=== PATIENT | male | born 1955 | race African-American/Black ===

== ENCOUNTER 2019-05-21 10:55 | Inpatient (IN) | payer MEDICAID ==
[~2019-05-21] VITALS: Ht 180.3 cm; Wt 74.8 kg
[2019-05-21] MEDS ORDERED: HYDR12.529 PO (11:02)
[2019-05-21] MEDS ORDERED: ALBUTEROL (0.083%) 2.5MG/3ML NEB HHN STA (11:32)
[2019-05-21] MEDS ORDERED: IPRATROPIUM BROMIDE (0.02%) 0.5MG/2.5ML NEB HHN STA (11:32)
[2019-05-21] MEDS ORDERED: MAGNESIUM 2 G PREMIX 50 ML IV STA (11:32)
[2019-05-21] MEDS ORDERED: METHYLPREDNISOLONE SOD SUCC 125 MG/2 ML VIAL IV STA (11:32)
[2019-05-21] MEDS ORDERED: MORPHINE SULFATE 10 MG/ML CPJ IV ONE (11:45)
[2019-05-21] MEDS ORDERED: ONDANSETRON HCL 4MG/2ML INJ IV ONE (11:45)
[2019-05-21 12:37] LABS: CHLORIDE 108 mEq/L (98-107)
[2019-05-21 12:40] LABS: BASOPHILS % 0.6 % (0.0-2.0); EOSINOPHILS % 2.3 % (0.0-5.0); HEMATOCRIT. 46.6 % (42.0-52.0); HEMOGLOBIN. 15.5 g/dL (14.0-18.0); LYMPHOCYTES % 45.3 % (20.0-50.0); MEAN CORPUSCULAR HEMOGLOBIN 27.6 pg (28.0-32.0); MEAN PLATELET VOLUME 8.4 fl (7.4-10.4); MONOCYTES % 5.6 % (2.0-8.0); NEUTROPHILS % 46.2 % (40.0-76.0); PLATELET 215 x1000/uL (130-400); PROTHROMBIN TIME 10.4 sec (9.6-11.0); RED BLOOD CELL COUNT 5.61 mill/uL (4.7-6.1); RED CELL DISTRIBUTION WIDTH 22.1 % (11.6-14.6)
[2019-05-21 13:00] LABS: PLATELET ESTIMATE NORMAL
[2019-05-21 13:10] LABS: CLARITY URINE CLEAR (CLEAR); COLOR URINE YELLOW (YELLOW); KETONES URINE NEGATIVE (NEGATIVE); LEUKOCYTE ESTERASE URINE NEGATIVE (NEGATIVE); NITRITE URINE NEGATIVE (NEGATIVE); OCCULT BLOOD URINE NEGATIVE (NEGATIVE); PH URINE 5.5 (4.5-8.0); PROTEIN URINE NEGATIVE (NEGATIVE); SPECIFIC GRAVITY URINE 1.013 (1.005-1.030); UROBILINOGEN URINE 0.2 E.U./dL (0.2-1.0)
[2019-05-21] MEDS ORDERED: LEVOFLOXACIN 500MG PREMIX 100 ML IV ONE (14:15)
[2019-05-21] MEDS ORDERED: ONDANSETRON HCL 4MG/2ML INJ IV PRN (14:30)
[2019-05-21] MEDS ORDERED: HYDROCODONE/ACETAMINOPHEN 5/325MG TABLET PO PRN (14:30)
[2019-05-21] MEDS ORDERED: OXYCODONE HCL/ACETAMINOPHEN 5/325MG TABLET PO ONE (14:30)
[2019-05-21] MEDS ORDERED: IPRATROPIUM/ALBUTEROL 0.5-3(2.5)MG/3ML NEB HHN PRN (14:30)
[2019-05-21] MEDS ORDERED: ACETAMINOPHEN 325MG TABLET PO PRN (14:30)
[2019-05-21] MEDS ORDERED: GUAIFENESIN-DM 200MG-20MG/10ML UDC PO PRN (14:30)
[2019-05-21] MEDS ORDERED: KETOROLAC 30MG/ML VIAL IV PRN (14:30)
[2019-05-21] MEDS ORDERED: CLONIDINE 0.1MG TABLET PO PRN (14:45)
[2019-05-21 16:00] VITALS: BP_SYST 122; BP_SYST 99; BP_DIAS 61; BP_DIAS 73
[2019-05-21] MEDS: METHYLPREDNISOLONE SOD SUCC 40 MG/ML VIAL IV SCH (16:20)
[2019-05-21] MEDS: MONTELUKAST SODIUM 10MG TABLET PO SCH (16:20)
[2019-05-21 16:59] VITALS: BP 122/61
[2019-05-21 20:00] VITALS: BP 122/83
[2019-05-21] MEDS: GUAIFENESIN 600MG ER TABLET PO SCH (20:22)
[2019-05-21] MEDS: HYDROCODONE/ACETAMINOPHEN 10/325MG TABLET PO PRN (22:29)
[2019-05-21 22:57] LABS: *AMPHETAMINES SCREEN URINE NEGATIVE (NEGATIVE); *BARBITURATES SCREEN URINE NEGATIVE (NEGATIVE); *BENZODIAZEPINES SCREEN URINE PRESUMTIVE POSITIVE (NEGATIVE); *COCAINE SCREEN URINE NEGATIVE (NEGATIVE)
[2019-05-21 22:58] LABS: CANNABINOID URINE SCREEN NEGATIVE (NEGATIVE); METHADONE URINE SCREEN NEGATIVE (NEGATIVE); OPIATES URINE SCREEN PRESUMTIVE POSITIVE (NEGATIVE); PHENCYCLIDINE URINE SCREEN NEGATIVE (NEGATIVE)
[2019-05-22] VITALS: BP 100/63
[2019-05-22] MEDS: METHYLPREDNISOLONE SOD SUCC 40 MG/ML VIAL IV SCH ×3 (01:02→16:46)
[2019-05-22] MEDS: ZOLPIDEM TARTRATE 5MG TABLET PO PRN ×2 (01:08→21:19)
[2019-05-22 04:00] VITALS: BP 109/67
[2019-05-22] MEDS: HYDROCODONE/ACETAMINOPHEN 10/325MG TABLET PO PRN ×4 (06:10→19:54)
[2019-05-22 08:00] VITALS: BP 108/69
[2019-05-22] MEDS: GUAIFENESIN 600MG ER TABLET PO SCH ×2 (09:24→20:02)
[2019-05-22] MEDS: NICOTINE 14MG PATCH TD SCH (09:33)
[2019-05-22 12:00] VITALS: BP 117/71
[2019-05-22] MEDS: LEVOFLOXACIN 750MG PREMIX 150 ML IV SCH (14:40)
[2019-05-22 16:00] VITALS: BP 118/78
[2019-05-22] MEDS: MONTELUKAST SODIUM 10MG TABLET PO SCH (16:46)
[2019-05-22 20:00] VITALS: BP_SYST 133; BP_DIAS 70; BP_DIAS 80
[2019-05-23] VITALS: BP 125/86
[2019-05-23] MEDS: IPRATROPIUM/ALBUTEROL 0.5-3(2.5)MG/3ML NEB HHN SCH ×4 (00:02→12:30)
[2019-05-23] MEDS: METHYLPREDNISOLONE SOD SUCC 40 MG/ML VIAL IV SCH ×2 (00:10→08:49)
[2019-05-23] MEDS: HYDROCODONE/ACETAMINOPHEN 10/325MG TABLET PO PRN ×4 (00:13→14:27)
[2019-05-23 04:00] VITALS: BP 142/79
[2019-05-23 08:00] VITALS: BP 123/84
[2019-05-23] MEDS: NICOTINE 14MG PATCH TD SCH (08:49)
[2019-05-23] MEDS: GUAIFENESIN 600MG ER TABLET PO SCH (08:49)
[2019-05-23] MEDS ORDERED: IPRA3AMP9 NEB (10:04)
[2019-05-23] MEDS ORDERED: FLUT1DIS3 INH (10:04)
[2019-05-23] MEDS ORDERED: LEVO750T21 MT (10:04)
[2019-05-23] MEDS ORDERED: ALBU18HF2 IH (10:04)
[2019-05-23] MEDS ORDERED: MONT10TA21 MT (10:04)
[2019-05-23] MEDS ORDERED: TUSSL MT (10:04)
[2019-05-23] MEDS ORDERED: GUAI600T26 MT (10:04)
[2019-05-23] MEDS ORDERED: NICO-645 TP (10:04)
[2019-05-23] MEDS ORDERED: P20 MT (10:04)
[2019-05-23 12:00] VITALS: BP 121/82
[2019-05-23 12:48] VITALS: BP 121/82
[2019-05-23] MEDS: LEVOFLOXACIN 750MG PREMIX 150 ML IV SCH (13:59)
[2019-05-23 16:00] VITALS: BP 134/89
== END 2019-05-23 15:45 | disposition home or self-care (01) | DRG 140 ==
LOC: ER 10:55 → 6EST 14:05 → ENRESERV 14:44
PROVIDERS: ADMIT Internal Medicine; ATTEND Internal Medicine
DX: J44.0 Chronic obstructive pulmonary disease with (acute) lower respiratory infection (principal); J18.9 Pneumonia, unspecified organism; E87.8 Other disorders of electrolyte and fluid balance, not elsewhere classified; J44.1 Chronic obstructive pulmonary disease with (acute) exacerbation; I10 Essential (primary) hypertension; F17.210 Nicotine dependence, cigarettes, uncomplicated; G89.29 Other chronic pain; M19.90 Unspecified osteoarthritis, unspecified site; Z71.6 Tobacco abuse counseling
CPT/HCPCS: 36415; 71045; 80305; 81003; 82962; 83605; 83880; 84145; 84484; 93005; 93970; 94640; 96365; 96375; 99291; J1885; J1956; J2270; J2405; J2920; J2930; J3475; J7611; J7620

== ENCOUNTER 2019-07-06 20:13 | Inpatient (IN) | payer MEDICAID ==
[~2019-07-06] VITALS: Ht 180.3 cm; Wt 72.6 kg
[~2019-07-06 20:13] MED LIST: ALBU18HF2 IH; FLUT1DIS3 INH; GUAI600T26 MT; HYDR12.529 PO; IPRA3AMP9 NEB; LEVO750T21 MT; MONT10TA21 MT; NICO-645 TP; P20 MT; TUSSL MT
[2019-07-06] MEDS ORDERED: IPRATROPIUM BROMIDE (0.02%) 0.5MG/2.5ML NEB HHN STA (20:45)
[2019-07-06] MEDS ORDERED: METHYLPREDNISOLONE SOD SUCC 125 MG/2 ML VIAL IV STA (20:45)
[2019-07-06] MEDS ORDERED: ALBUTEROL (0.083%) 2.5MG/3ML NEB HHN STA (20:45)
[2019-07-06] MEDS ORDERED: NICOTINE 14MG PATCH TD SCH (21:15)
[2019-07-06] MEDS ORDERED: AZITHROMYCIN 500 MG in DEXT 5% WATER 250 ML IV SCH (21:15)
[2019-07-06 21:19] LABS: BASOPHILS % 0.5 % (0.0-2.0); EOSINOPHILS % 1.5 % (0.0-5.0); HEMATOCRIT. 40.1 % (42.0-52.0); HEMOGLOBIN. 13.3 g/dL (14.0-18.0); LYMPHOCYTES % 23.9 % (20.0-50.0); MEAN CORPUSCULAR HEMOGLOBIN 28.5 pg (28.0-32.0); MEAN PLATELET VOLUME 8.1 fl (7.4-10.4); MONOCYTES % 7.8 % (2.0-8.0); NEUTROPHILS % 66.3 % (40.0-76.0); PLATELET 193 x1000/uL (130-400); RED BLOOD CELL COUNT 4.65 mill/uL (4.7-6.1); RED CELL DISTRIBUTION WIDTH 23.2 % (11.6-14.6)
[2019-07-06 21:24] LABS: CHLORIDE 110 mEq/L (98-107)
[2019-07-06 22:02] LABS: PLATELET ESTIMATE NORMAL
[2019-07-07] VITALS (8 sets, daily range): BP systolic 112–161; BP diastolic 51–100
[2019-07-07] MEDS ORDERED: ALBUTEROL (0.083%) 2.5MG/3ML NEB HHN PRN (01:00)
[2019-07-07] MEDS: MORPHINE SULFATE 2 MG/ML CPJ (NOT FOR IM USE) IV PRN ×3 (02:39→10:45)
[2019-07-07] MEDS ORDERED: LEVOFLOXACIN 500MG PREMIX 100 ML IV SCH (04:00)
[2019-07-07] MEDS: ALBUTEROL (0.083%) 2.5MG/3ML NEB HHN SCH ×5 (04:37→20:47)
[2019-07-07] MEDS ORDERED: GUAIFENESIN-DM 200MG-20MG/10ML UDC PO PRN (05:15)
[2019-07-07] MEDS: METHYLPREDNISOLONE SOD SUCC 40 MG/ML VIAL IV SCH ×3 (05:24→21:26)
[2019-07-07] MEDS: FLUTICASONE PROPIONATE 50MCG/SPRAY BOTTLE BOTHNSTRLS SCH ×2 (05:24→16:41)
[2019-07-07] MEDS: HYDROCODONE/ACETAMINOPHEN 10/325MG TABLET PO PRN ×2 (14:26→18:30)
[2019-07-07] MEDS: ENOXAPARIN 40MG/0.4ML SYR SUBCUT SCH (14:30)
[2019-07-08] VITALS: BP 111/53
[2019-07-08] MEDS: ALBUTEROL (0.083%) 2.5MG/3ML NEB HHN SCH ×4 (00:31→13:18)
[2019-07-08] MEDS: HYDROCODONE/ACETAMINOPHEN 10/325MG TABLET PO PRN ×3 (02:29→10:35)
[2019-07-08 04:00] VITALS: BP 123/71
[2019-07-08] MEDS: METHYLPREDNISOLONE SOD SUCC 40 MG/ML VIAL IV SCH ×2 (05:22→13:23)
[2019-07-08 08:00] VITALS: BP 129/72
[2019-07-08] MEDS: FLUTICASONE PROPIONATE 50MCG/SPRAY BOTTLE BOTHNSTRLS SCH (08:10)
[2019-07-08] MEDS: ENOXAPARIN 40MG/0.4ML SYR SUBCUT SCH (08:11)
[2019-07-08] MEDS ORDERED: ASPIRIN 81MG TABLET PO SCH (09:00)
[2019-07-08 12:00] VITALS: BP 120/66
[2019-07-08] MEDS ORDERED: P20 MT (14:06)
[2019-07-08 14:35] VITALS: BP 120/66
== END 2019-07-08 17:00 | disposition home or self-care (01) | DRG 140 ==
LOC: ER 20:55 → 8WST 21:12 → EDBEDREQ 21:15 → EDBEDREQTM 21:15 → ENRESERV 23:51
PROVIDERS: ADMIT Internal Medicine; ATTEND Internal Medicine
DX: J44.1 Chronic obstructive pulmonary disease with (acute) exacerbation (principal); J96.00 Acute respiratory failure, unspecified whether with hypoxia or hypercapnia; M94.0 Chondrocostal junction syndrome [Tietze]; E87.8 Other disorders of electrolyte and fluid balance, not elsewhere classified; D64.9 Anemia, unspecified; I10 Essential (primary) hypertension; F17.210 Nicotine dependence, cigarettes, uncomplicated; F41.9 Anxiety disorder, unspecified; G89.29 Other chronic pain; M54.9 Dorsalgia, unspecified; Z71.6 Tobacco abuse counseling
CPT/HCPCS: 36415; 71045; 80048; 83880; 84484; 85379; 93005; 93306; 94644; 99285; J0456; J1650; J1956; J2270; J2920; J2930; J7060; J7611

== ENCOUNTER 2019-07-31 08:35 | Inpatient (IN) | payer MEDICAID ==
[~2019-07-31] VITALS: Ht 180.3 cm; Wt 68.5 kg
[~2019-07-31 08:35] MED LIST changes: -LEVO750T21 MT
[2019-07-31] MEDS ORDERED: METHYLPREDNISOLONE SOD SUCC 125 MG/2 ML VIAL IV STA (08:38)
[2019-07-31] MEDS ORDERED: ALBUTEROL (0.083%) 2.5MG/3ML NEB HHN STA (08:38)
[2019-07-31] MEDS ORDERED: MAGNESIUM 2 G PREMIX 50 ML IV STA (08:38)
[2019-07-31] MEDS ORDERED: LEVOFLOXACIN 750MG PREMIX 150 ML IV STA (08:38)
[2019-07-31] MEDS ORDERED: IPRATROPIUM BROMIDE (0.02%) 0.5MG/2.5ML NEB HHN STA (08:38)
[2019-07-31 09:21] LABS: BASOPHILS % 0.2 % (0.0-2.0); EOSINOPHILS % 0.1 % (0.0-5.0); HEMATOCRIT. 44.4 % (42.0-52.0); HEMOGLOBIN. 14.8 g/dL (14.0-18.0); LYMPHOCYTES % 7.2 % (20.0-50.0); MEAN CORPUSCULAR HEMOGLOBIN 29.3 pg (28.0-32.0); MONOCYTES % 5.6 % (2.0-8.0); NEUTROPHILS % 86.9 % (40.0-76.0); RED BLOOD CELL COUNT 5.04 mill/uL (4.7-6.1); RED CELL DISTRIBUTION WIDTH 22.2 % (11.6-14.6)
[2019-07-31 09:22] LABS: BG BASE EXCESS -0.3 mmol/L (-2.0-2.0); BG BILEVEL POS AIRWAY PRESSURE 15/5; BG CARBOXYHEMOGLOBIN 3.4 % (0.5-1.5); BG DEOXYHEMOGLOBIN 0.2 % (0.0-5.0); BG FRACTION INSPIRED OXYGEN 40; BG HCO3 ACT 25.3 mmol/L (22.0-26.0); BG METHEMOGLOBIN 0.3 % (0.0-1.5); BG OXYGEN SATURATION 99.8 % (92.0-98.5); BG OXYHEMOGLOBIN 96.1 % (94.0-97.0); BG PCO2 44.9 mmHg (35.0-45.0); BG PH 7.369 (7.350-7.450); BG SAMPLE SITE RIGHT BRACHIAL; BG TOTAL HEMOGLOBIN 14.8 g/dL (12.0-18.0); BG VENT MODE MASK - BIPAP
[2019-07-31 09:27] LABS: CHLORIDE 103 mEq/L (98-107)
[2019-07-31 09:40] LABS: PLATELET 118 x1000/uL (130-400)
[2019-07-31 09:41] LABS: PLATELET ESTIMATE SLIGHTLY DECREASED
[2019-07-31 14:08] VITALS: BP 138/88
[2019-07-31] MEDS ORDERED: BENZONATATE 100MG CAPSULE PO PRN (14:15)
[2019-07-31] MEDS ORDERED: IPRATROPIUM/ALBUTEROL 0.5-3(2.5)MG/3ML NEB HHN PRN (14:15)
[2019-07-31] MEDS ORDERED: KETOROLAC 30MG/ML VIAL IV PRN (14:45)
[2019-07-31 14:59] LABS: BG BASE EXCESS 1.3 mmol/L (-2.0-2.0); BG CARBOXYHEMOGLOBIN 2.1 % (0.5-1.5); BG DEOXYHEMOGLOBIN 2.7 % (0.0-5.0); BG FRACTION INSPIRED OXYGEN 32; BG HCO3 ACT 26.5 mmol/L (22.0-26.0); BG METHEMOGLOBIN 0.4 % (0.0-1.5); BG OXYGEN SATURATION 97.2 % (92.0-98.5); BG OXYHEMOGLOBIN 94.8 % (94.0-97.0); BG PCO2 43.9 mmHg (35.0-45.0); BG PH 7.398 (7.350-7.450); BG PO2 85.2 mmHg (75.0-100.0); BG SAMPLE SITE RIGHT BRACHIAL; BG TOTAL HEMOGLOBIN 14.2 g/dL (12.0-18.0); BG VENT MODE NASAL CANNULA
[2019-07-31] MEDS: METHYLPREDNISOLONE SOD SUCC 40 MG/ML VIAL IV SCH ×2 (15:13→23:09)
[2019-07-31] MEDS: HYDROCODONE/ACETAMINOPHEN 5/325MG TABLET PO PRN (15:14)
[2019-07-31] MEDS: ENOXAPARIN 40MG/0.4ML SYR SUBCUT SCH (15:15)
[2019-07-31 15:55] VITALS: BP 130/82
[2019-07-31] MEDS: IPRATROPIUM/ALBUTEROL 0.5-3(2.5)MG/3ML NEB HHN SCH ×2 (17:56→20:51)
[2019-07-31 18:00] VITALS: BP 123/72
[2019-07-31 20:00] VITALS: BP 114/77
[2019-07-31] MEDS: BUDESONIDE 0.5MG/2ML NEB HHN SCH (20:51)
[2019-07-31] MEDS: GUAIFENESIN 600MG ER TABLET PO SCH (21:07)
[2019-07-31 22:00] VITALS: BP 108/70
[2019-08-01] VITALS (14 sets, daily range): BP systolic 96–145; BP diastolic 60–87
[2019-08-01] MEDS: IPRATROPIUM/ALBUTEROL 0.5-3(2.5)MG/3ML NEB HHN SCH ×6 (00:13→21:05)
[2019-08-01] MEDS: METHYLPREDNISOLONE SOD SUCC 40 MG/ML VIAL IV SCH ×3 (06:06→22:53)
[2019-08-01 07:22] LABS: CHLORIDE 104 mEq/L (98-107)
[2019-08-01 07:23] LABS: BASOPHILS % 0.1 % (0.0-2.0); HEMATOCRIT. 38.1 % (42.0-52.0); HEMOGLOBIN. 13.1 g/dL (14.0-18.0); LYMPHOCYTES % 12.4 % (20.0-50.0); MEAN CORPUSCULAR HEMOGLOBIN 31.1 pg (28.0-32.0); MEAN CORPUSCULAR VOLUME 90.9 fL (80.0-94.0); MEAN PLATELET VOLUME 8.4 fl (7.4-10.4); MONOCYTES % 4.6 % (2.0-8.0); NEUTROPHILS % 82.9 % (40.0-76.0); PLATELET 148 x1000/uL (130-400); RED BLOOD CELL COUNT 4.19 mill/uL (4.7-6.1); RED CELL DISTRIBUTION WIDTH 22.2 % (11.6-14.6)
[2019-08-01] MEDS: BUDESONIDE 0.5MG/2ML NEB HHN SCH ×2 (08:01→21:06)
[2019-08-01] MEDS: GUAIFENESIN 600MG ER TABLET PO SCH ×2 (08:09→20:01)
[2019-08-01] MEDS: HYDROCODONE/ACETAMINOPHEN 5/325MG TABLET PO PRN ×2 (08:10→20:06)
[2019-08-01] MEDS ORDERED: LEVOFLOXACIN 500MG PREMIX 100 ML IV SCH (09:00)
[2019-08-01] MEDS ORDERED: NICO-645 TP (12:42)
[2019-08-01] MEDS ORDERED: P20 MT (12:42)
[2019-08-01] MEDS ORDERED: ALBU18HF2 IH (12:42)
[2019-08-01] MEDS ORDERED: IPRA3AMP9 NEB (12:42)
[2019-08-01] MEDS ORDERED: FLUT1DIS3 INH (12:42)
[2019-08-01] MEDS ORDERED: BENZ-16 MT (12:42)
[2019-08-01] MEDS ORDERED: NICOTINE 21MG PATCH TD SCH (12:45)
[2019-08-01] MEDS: ENOXAPARIN 40MG/0.4ML SYR SUBCUT SCH (14:36)
[2019-08-02] VITALS (8 sets, daily range): BP systolic 115–146; BP diastolic 75–96
[2019-08-02] MEDS: IPRATROPIUM/ALBUTEROL 0.5-3(2.5)MG/3ML NEB HHN SCH ×4 (00:58→12:31)
[2019-08-02] MEDS: METHYLPREDNISOLONE SOD SUCC 40 MG/ML VIAL IV SCH (06:52)
[2019-08-02] MEDS: HYDROCODONE/ACETAMINOPHEN 5/325MG TABLET PO PRN (06:53)
[2019-08-02] MEDS: BUDESONIDE 0.5MG/2ML NEB HHN SCH (07:55)
[2019-08-02] MEDS: GUAIFENESIN 600MG ER TABLET PO SCH (09:55)
[2019-08-02] MEDS ORDERED: LEVOFLOXACIN 500MG PREMIX 100 ML IV SCH (11:00)
[2019-08-02] MEDS ORDERED: GUAI600T26 MT (11:11)
[2019-08-03] MEDS ORDERED: LEVOFLOXACIN 500MG TABLET PO SCH (11:00)
== END 2019-08-02 17:42 | disposition home or self-care (01) | DRG 720 ==
LOC: ER 08:35 → 5EST 11:45 → ENRESERV 12:42
PROVIDERS: ADMIT Internal Medicine; ATTEND Internal Medicine
PROC: 5A09357 Assistance with Respiratory Ventilation, Less than 24 Consecutive Hours, Continuous Positive Airway Pressure (ICD-10-PCS; principal; 2019-07-31)
DX: A41.9 Sepsis, unspecified organism (principal); J96.00 Acute respiratory failure, unspecified whether with hypoxia or hypercapnia; J44.1 Chronic obstructive pulmonary disease with (acute) exacerbation; E87.1 Hypo-osmolality and hyponatremia; D69.6 Thrombocytopenia, unspecified; J06.9 Acute upper respiratory infection, unspecified; I10 Essential (primary) hypertension; F17.210 Nicotine dependence, cigarettes, uncomplicated; Z79.899 Other long term (current) drug therapy; Z71.6 Tobacco abuse counseling; Z68.21 Body mass index [BMI] 21.0-21.9, adult
CPT/HCPCS: 36415; 36600; 71045; 80048; 80053; 82375; 82805; 83880; 84484; 85025; 87804; 93005; 94640; 94644; 94660; 96365; 99291; J1650; J1956; J2920; J2930; J3475; J7611; J7620; J7626